=== PATIENT | male | born 2005 | race Caucasian/White ===

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

== ENCOUNTER 2025-03-22 20:44 | Emergency (ER) | payer OTHER ==
--- NOTE | 2025-03-22 21:26 | ED ---
ENT HPI - General Source: patient, family, RN notes reviewed Mode of arrival: ambulatory Limitations: no limitations <María Elena Reyna - Last Filed: 03/22/25 21:25> <Viviana Ray - Last Filed: 04/04/25 23:59> - General Stated complaint: dental pain Time Seen by Provider: 03/22/25 21:25 - History of Present Illness Initial comments: Quick note: 19-year-old male accompanied by his mother presented ER for evaluation of left lower molar pain. He states it has been bothering him since September. He notes at the end of last month he has noticed an increase of pain and swelling to this area. He states pain is shooting to ear. Denies fevers or chills (María Elena Reyna) 19-year-old male presents to the emergency department accompanied by his mother for toothache. Patient has had intermittent pain in his left lower mandible since September. He has had any increase in the amount of pain over the past couple of days and has developed slight swelling to the left cheek. He is in the process of finding a dentist who takes his insurance. He is taking Motrin [id number] without any improvement in his pain. He is not currently on any antibiotics. Denies difficulty breathing or swallowing. No fevers. No other alleviating, precipitating roughing factors (Viviana Ray) - Related Data Home Medications Medication Instructions Recorded Confirmed Methylphenidate HCl [Metadate Cd] 30 mg PO DAILY 04/01/15 11/12/16 Melatonin 3 mg PO HS 09/11/15 09/29/15 Previous Rx's Medication Instructions Recorded Amoxicillin 1,000 mg PO DAILY 10 Days capsule 11/12/16 Acetaminophen-Codeine 300-30mg 1 tab PO Q4H PRN 3 Days #18 tablet 03/22/25 [Tylenol w/codeine #3] Penicillin V Potassium [Pen Vee K] 500 mg PO QID #40 tab 03/22/25 Allergies Allergy/AdvReac Type Severity Reaction Status Date / Time No Known Allergies Allergy Verified 03/22/25 21:36 Review of Systems ROS Other: All systems not noted in ROS Statement are negative. <María Elena Reyna - Last Filed: 03/22/25 21:25> ROS Other: All systems not noted in ROS Statement are negative. <Viivana Ray - Last Filed: 04/04/25 23:59> ROS Statement: Those systems with pertinent positive or pertinent negative responses have been documented in the HPI. Past Medical History Past Medical History: No Reported History History of Any Multi-Drug Resistant Organisms: None Reported Past Surgical History: No Surgical Hx Reported Past Psychological History: ADD/ADHD Smoking Status: Never smoker Past Alcohol Use History: None Reported Past Drug Use History: None Reported <María Elena Reyna - Last Filed: 03/22/25 21:25> General Exam <María Elena Reyna - Last Filed: 03/22/25 21:25> General appearance: alert, in no apparent distress Head exam: Present: atraumatic, normocephalic, normal inspection Eye exam: Present: normal appearance, PERRL, EOMI. Absent: scleral icterus, conjunctival injection, periorbital swelling ENT exam: Present: normal exam, mucous membranes moist, other (No drooling, trismus, hoarseness or stridor. Patient does have tenderness to the left lower mandible. No signs of [place]) <Viviana Ray - Last Filed: 04/04/25 23:59> - General Exam Comments Initial Comments: Visual Physical Exam Vital signs reviewed General: Well-appearing, nontoxic, no acute distress. Head: Normocephalic, atraumatic Eyes: PERRLA, EOMI ENT: Airway patent Chest: Nonlabored breathing Skin: No visual rash, normal skin tone Neuro: Alert and oriented 3 Musculoskeletal: No gross abnormalities (María Elena Reyna) Course Vital Signs 03/22/25 21:32 Temperature 97.9 F Pulse Rate 47 L Respiratory 18 Rate Blood Pressure 116/73 O2 Sat by Pulse 99 Oximetry Medical Decision Making <María Elena Reyna - Last Filed: 03/22/25 21:25> <Viviana Ray - Last Filed: 04/04/25 23:59> - Medical Decision Making I performed the quick note portion of this chart. Electronically signed by María Elena Reyna PA-C (María Elena Reyna) Was pt. sent in by a medical professional or institution ([facility]AL[facility] Camp, CABLE OPERATOR, urgent care, hospital, or senior living...) When possible be specific @ -No Did you speak to anyone other than the patient for history (EMS, parent, family, police, friend...)? What history was obtained from this source @ -Spoke with the mom for history Did you review nursing and triage notes (agree or disagree)? Why? @ -I reviewed and agree with nursing and triage notes Were old charts reviewed (outside hosp., previous admission, EMS record, old EKG, old radiological studies, urgent care reports/EKG's, senior living records)? Report findings @ -No old charts were reviewed Differential Diagnosis (chest pain, altered mental status, abdominal pain women, abdominal pain men, vaginal bleeding, weakness, fever, dyspnea, syncope, hea dache, dizziness, GI bleed, back pain, seizure, CVA, palpatations, mental health, musculoskeletal)? @ -Dentalgia, dental abscess, gingivitis EKG interpreted by me (3pts min.). @ -Not done X-rays interpreted by me (1pt min.). @ -None done CT interpreted by me (1pt min.). @ -None done U/S interpreted by me (1pt. min.). @ -None done What testing was considered but not performed or refused? (CT, X-rays, U/S, labs)? Why? @ -None What meds were considered but not given or refused? Why? @ -None Did you discuss the management of the patient with other professionals (professionals i.e. , PA, CABLE OPERATOR, lab, RT, psych nurse, social work professor, skip locator, teacher, conservation science officer, caseworker intake)? Give summary @ -No Was smoking cessation discussed for >3mins.? @ -No Was critical care preformed (if so, how long)? @ -No Were there social determinants of health that impacted care today? How? (Homelessness, low income, unemployed, alcoholism, drug addiction, transportation, low edu. Level, literacy, decrease access to med. care, senior living, rehab)? @ -No Was there de-escalation of care discussed even if they declined (Discuss DNR or withdrawal of care, Hospice)? DNR status @ -No What co-morbidities impacted this encounter? (DM, HTN, Smoking, COPD, CAD, Cancer, CVA, ARF, Chemo, Hep., AIDS, mental health diagnosis, sleep apnea, morbid obesity)? @ -None Was patient admitted / discharged? Hospital course, mention meds given and route, prescriptions, significant lab abnormalities, going to OR and other pertinent info. @ -Upon arrival patient seen and evaluated in triage. Thorough history and physical exam was performed. No signs of [place]'s. No signs of dental abscess. Patient was given a Tylenol 3 for pain as well as a dose of penicillin. He will be placed on these 2 medications at home. He will follow-up with his dentist for definitive management return for any new or worsening symptoms Undiagnosed new problem with uncertain prognosis? @ -No Drug Therapy requiring intensive monitoring for toxicity (Heparin, Nitro, Insulin, Cardizem)? @ -No Were any procedures done? @ -No Diagnosis/symptom? @ -Acute dentalgia Acute, or Chronic, or Acute on Chronic? @ -Acute Uncomplicated (without systemic symptoms) or Complicated (systemic symptoms)? @ -Uncomplicated Side effects of treatment? @ -No Exacerbation, Progression, or Severe Exacerbation? @ -No Poses a threat to life or bodily function? How? (Chest pain, [place], [place], pneumonia, PE, COPD, DKA, ARF, appy, cholecystitis, CVA, Diverticulitis, Homicidal, Suicidal, threat to staff... and all critical care pts) @ -No (Viviana Ray) Disposition <María Elena Reyna - Last Filed: 03/22/25 21:25> Is patient prescribed a controlled substance at d/c from ED?: Yes When asked, does pt state using other controlled substances?: No If prescribed controlled substance>3 days was MAPS reviewed?: Prescribed <3 Days If opioid is for acute pain is fill amount 7 days or less?: Yes If Rx opioid, was Start Talking consent form obtained?: Yes Time of Disposition: 22:20 <Viviana Ray - Last Filed: 04/04/25 23:59> Clinical Impression: Dental caries, Fracture of tooth Disposition: HOME SELF-CARE Condition: Stable Instructions (If sedation given, give patient instructions): Toothache (ED) Additional Instructions: Please take the antibiotics and pain medications as they are instructed. I would alternate taking the Tylenol threes with Motrin. Follow-up with oral surgeon. Return for any new or worsening symptoms Prescriptions: Penicillin V Potassium [Pen Vee K] 500 mg PO QID #40 tab Acetaminophen-Codeine 300-30mg [Tylenol w/codeine #3] 1 tab PO Q4H PRN 3 Days #18 tablet PRN Reason: Pain Referrals: None,Stated [Primary Care Provider] - 1-2 days
[2025-03-22 21:36] VITALS: BP 116/73; PULSE 47; RESP 18; TEMP 97.9
[2025-03-22] MEDS: PENICILLIN V POTASSIUM 250 MG TAB PO STA (22:52)
[2025-03-22] MEDS: ACET/COD 300 MG/30 MG STARTER PACK 6 TAB BTL PO STA (22:52)
== END 2025-03-22 22:59 | disposition home or self-care (01) ==
LOC: EC 20:44
DX: S02.5XXA Fracture of tooth (traumatic), initial encounter for closed fracture (principal); K02.9 Dental caries, unspecified; X58.XXXA Exposure to other specified factors, initial encounter
CPT/HCPCS: 99282

== ENCOUNTER 2025-04-20 15:54 | Emergency (ER) | payer OTHER ==
[2025-04-20 16:16] VITALS: RESP 20
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
[2025-04-20] MEDS: IBUPROFEN 600 MG TAB PO STA (16:51)
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
[2025-04-20 17:54] VITALS: BP 125/85; PULSE 89; TEMP 98
== END 2025-04-20 18:00 | disposition home or self-care (01) ==
LOC: EC 15:54
DX: S20.219A Contusion of unspecified front wall of thorax, initial encounter (principal); V89.2XXA Person injured in unspecified motor-vehicle accident, traffic, initial encounter
CPT/HCPCS: 99284